=== PATIENT | male | born 1975 | race African-American/Black ===

== ENCOUNTER 2017-05-22 09:27 | Emergency (ER) | payer MEDICAID ==
[~2017-05-22] VITALS: Ht 177.8 cm; Wt 84.0 kg
[~2017-05-22 09:27] MED LIST: LISI10TA5 PO; OMEP20CA10 PO; RISP2 PO
[2017-05-22] MEDS ORDERED: MORPHINE SULFATE 4 MG/ML CPJ (NOT FOR IM USE) IV STA (09:34)
[2017-05-22] MEDS ORDERED: MORPHINE SULFATE 10 MG/ML CPJ IV NR (10:00)
[2017-05-22 10:01] LABS: EOSINOPHILS % 1.1 % (0.0-5.0); HEMATOCRIT. 38.3 % (42.0-52.0); HEMOGLOBIN. 13.1 g/dL (14.0-18.0); LYMPHOCYTES % 27.7 % (20.0-50.0); MEAN CORPUSCULAR HEMOGLOBIN 30.9 pg (28.0-32.0); MEAN CORPUSCULAR VOLUME 90.4 fL (80.0-94.0); MEAN PLATELET VOLUME 7.7 fl (7.4-10.4); MONOCYTES % 6.9 % (2.0-8.0); NEUTROPHILS % 63.3 % (40.0-76.0); PLATELET 234 x1000/uL (130-400); RED BLOOD CELL COUNT 4.23 mill/uL (4.7-6.1); RED CELL DISTRIBUTION WIDTH 13.3 % (11.6-14.6)
[2017-05-22 10:08] LABS: INR 1.1; PROTHROMBIN TIME 11.6 sec (9.4-11.6)
[2017-05-22 10:12] LABS: CARBON DIOXIDE 28 mEq/L (21-32); CHLORIDE 103 mEq/L (98-107)
[2017-05-22 10:15] LABS: TROPONIN I < 0.02 ng/mL (0.00-0.04)
[2017-05-22 12:51] LABS: *AMPHETAMINES SCREEN URINE PRESUMTIVE POSITIVE (NEGATIVE); *BARBITURATES SCREEN URINE NEGATIVE (NEGATIVE); *BENZODIAZEPINES SCREEN URINE NEGATIVE (NEGATIVE); *COCAINE SCREEN URINE NEGATIVE (NEGATIVE); CANNABINOID URINE SCREEN NEGATIVE (NEGATIVE); METHADONE URINE SCREEN NEGATIVE (NEGATIVE); OPIATES URINE SCREEN NEGATIVE (NEGATIVE); PHENCYCLIDINE URINE SCREEN PRESUMTIVE POSITIVE (NEGATIVE)
[2017-05-22 23:24] VITALS: BP 115/79
== END 2017-05-22 23:42 ==
LOC: ER 09:39
DX: S51.811A Laceration without foreign body of right forearm, initial encounter (principal); R45.851 Suicidal ideations; R07.9 Chest pain, unspecified; I10 Essential (primary) hypertension; F12.10 Cannabis abuse, uncomplicated; F16.10 Hallucinogen abuse, uncomplicated; F15.10 Other stimulant abuse, uncomplicated; X78.8XXA Intentional self-harm by other sharp object, initial encounter; Y93.89 Activity, other specified; Y92.89 Other specified places as the place of occurrence of the external cause; Y99.8 Other external cause status
CPT/HCPCS: 12002; 36415; 71010; 80053; 80305; 83880; 84484; 85025; 85610; 93005; 96374; 99285; G0482; J2270; Z7610

== ENCOUNTER 2017-06-15 07:47 | Inpatient (IN) | payer MEDICAID ==
[~2017-06-15] VITALS: Ht 177.8 cm; Wt 94.3 kg
[2017-06-15] MEDS ORDERED: NITROGLYCERIN 0.4MG TABLET SL SL PRN (08:15)
[2017-06-15] MEDS ORDERED: ONDANSETRON HCL 4MG/2ML VIAL IV STA (09:04)
[2017-06-15] MEDS ORDERED: PANTOPRAZOLE SODIUM 40 MG/VIAL IV STA (09:04)
[2017-06-15] MEDS ORDERED: SODIUM CHLORIDE 0.9% 1,000 ML IV ONE (09:04)
[2017-06-15] MEDS ORDERED: MORPHINE SULFATE 4 MG/ML CPJ (NOT FOR IM USE) IV STA (09:04)
[2017-06-15 09:06] LABS: BASOPHILS % 0.6 % (0.0-2.0); EOSINOPHILS % 0.4 % (0.0-5.0); HEMATOCRIT. 40.7 % (42.0-52.0); HEMOGLOBIN. 13.7 g/dL (14.0-18.0); LYMPHOCYTES % 31.2 % (20.0-50.0); MEAN CORPUSCULAR HEMOGLOBIN 30.5 pg (28.0-32.0); MEAN CORPUSCULAR VOLUME 90.7 fL (80.0-94.0); MEAN PLATELET VOLUME 8.4 fl (7.4-10.4); MONOCYTES % 8.5 % (2.0-8.0); NEUTROPHILS % 59.3 % (40.0-76.0); PLATELET 250 x1000/uL (130-400); RED BLOOD CELL COUNT 4.49 mill/uL (4.7-6.1); RED CELL DISTRIBUTION WIDTH 13.4 % (11.6-14.6)
[2017-06-15 09:24] LABS: CARBON DIOXIDE 27 mEq/L (21-32); CHLORIDE 101 mEq/L (98-107); TROPONIN I < 0.02 ng/mL (0.00-0.04)
[2017-06-15 09:25] LABS: INR 1.1; PARTIAL THROMBOPLASTIN TIME 27.1 sec (23.4-31.0); PROTHROMBIN TIME 11.4 sec (9.4-11.6)
[2017-06-15 09:40] LABS: ETHANOL BLOOD < 10 mg/dL
[2017-06-15] MEDS ORDERED: MORPHINE SULFATE 10 MG/ML CPJ IV ONE (09:45)
[2017-06-15 09:48] LABS: INR 1.1; PARTIAL THROMBOPLASTIN TIME 27.7 sec (23.4-31.0); PROTHROMBIN TIME 11.6 sec (9.4-11.6)
[2017-06-15] MEDS ORDERED: POTASSIUM CHLORIDE 20MEQ TABLET SR PO ONE (10:45)
[2017-06-15] MEDS ORDERED: ASPIRIN 81MG TABLET PO ONE (10:45)
[2017-06-15 14:20] VITALS: BP 150/96
[2017-06-15] MEDS: SODIUM CHLORIDE 0.9% 1,000 ML IV SCH (18:03)
[2017-06-15] MEDS ORDERED: OLAN10TA3 PO (18:34)
[2017-06-15] MEDS ORDERED: IPRATROPIUM/ALBUTEROL 0.5-3(2.5)MG/3ML NEB INH PRN (19:45)
[2017-06-15] MEDS ORDERED: CLONIDINE 0.1MG TABLET PO PRN (19:45)
[2017-06-15] MEDS ORDERED: MAGNESIUM/ALUMINUM HYDROXIDE/SIMETHICONE 30ML UDC PO PRN (19:45)
[2017-06-15] MEDS ORDERED: ONDANSETRON HCL 4MG/2ML VIAL IV PRN (19:45)
[2017-06-15] MEDS ORDERED: ACETAMINOPHEN 325MG TABLET PO PRN (19:45)
[2017-06-15 20:00] VITALS: BP 124/79
[2017-06-15] MEDS: ENOXAPARIN 30MG/0.3ML SYR SUBCUT SCH (21:00)
[2017-06-15] MEDS: AMLODIPINE 2.5MG TABLET PO SCH (22:04)
[2017-06-15] MEDS: MULTIVITAMINS,THER W-MINERALS TABLET PO SCH (22:04)
[2017-06-15] MEDS: CHLORDIAZEPOXIDE 25MG CAPSULE PO SCH (22:04)
[2017-06-15] MEDS: FOLIC ACID 1MG TABLET PO SCH (22:04)
[2017-06-15] MEDS: LISINOPRIL 20MG TABLET PO SCH (22:04)
[2017-06-15] MEDS: THIAMINE HCL 100MG TABLET PO SCH (22:05)
[2017-06-16] VITALS: BP 116/56
[2017-06-16] MEDS: SODIUM CHLORIDE 0.9% 1,000 ML IV SCH (02:58)
[2017-06-16 04:00] VITALS: BP 128/66
[2017-06-16 06:16] LABS: BASOPHILS % 0.6 % (0.0-2.0); EOSINOPHILS % 3.4 % (0.0-5.0); HEMATOCRIT. 40.1 % (42.0-52.0); HEMOGLOBIN. 13.1 g/dL (14.0-18.0); LYMPHOCYTES % 38.1 % (20.0-50.0); MEAN CORPUSCULAR HEMOGLOBIN 29.9 pg (28.0-32.0); MEAN CORPUSCULAR VOLUME 91.7 fL (80.0-94.0); MEAN PLATELET VOLUME 8.6 fl (7.4-10.4); MONOCYTES % 11.7 % (2.0-8.0); NEUTROPHILS % 46.2 % (40.0-76.0); PLATELET 220 x1000/uL (130-400); RED BLOOD CELL COUNT 4.38 mill/uL (4.7-6.1); RED CELL DISTRIBUTION WIDTH 13.6 % (11.6-14.6)
[2017-06-16] MEDS ORDERED: OMEPRAZOLE 20MG CAPSULE EXTENDED RELEASE PO SCH (06:45)
[2017-06-16 08:00] VITALS: BP 105/68
[2017-06-16] MEDS: AMLODIPINE 2.5MG TABLET PO SCH (08:26)
[2017-06-16] MEDS: LISINOPRIL 20MG TABLET PO SCH (08:27)
[2017-06-16] MEDS: THIAMINE HCL 100MG TABLET PO SCH (08:35)
[2017-06-16] MEDS: MULTIVITAMINS,THER W-MINERALS TABLET PO SCH (08:35)
[2017-06-16] MEDS: CHLORDIAZEPOXIDE 25MG CAPSULE PO SCH (08:36)
[2017-06-16] MEDS: FOLIC ACID 1MG TABLET PO SCH (08:36)
[2017-06-16] MEDS: ENOXAPARIN 30MG/0.3ML SYR SUBCUT SCH (08:36)
[2017-06-16 08:37] LABS: CARBON DIOXIDE 30 mEq/L (21-32); CHLORIDE 104 mEq/L (98-107)
[2017-06-16] MEDS ORDERED: OLANZAPINE 10MG TABLET PO SCH (09:00)
[2017-06-16] MEDS ORDERED: DOCUSATE SODIUM 100MG CAPSULE PO SCH (09:00)
[2017-06-16 12:00] VITALS: BP 95/56
[2017-06-16 12:42] VITALS: BP 95/56
== END 2017-06-16 13:00 | disposition home or self-care (01) | DRG 203 ==
LOC: ER 07:48 → 5WST 11:03 → EDBEDREQ 11:06 → ENRESERV 13:01
PROVIDERS: ADMIT Family Medicine Adult Medicine; ATTEND Family Medicine Adult Medicine
DX: M94.0 Chondrocostal junction syndrome [Tietze] (principal); F20.9 Schizophrenia, unspecified; I10 Essential (primary) hypertension; E87.6 Hypokalemia; F19.10 Other psychoactive substance abuse, uncomplicated; F15.10 Other stimulant abuse, uncomplicated; F17.210 Nicotine dependence, cigarettes, uncomplicated; Z90.49 Acquired absence of other specified parts of digestive tract; Z79.899 Other long term (current) drug therapy; Z91.14 Patient's other noncompliance with medication regimen; Z71.51 Drug abuse counseling and surveillance of drug abuser
CPT/HCPCS: 36415; 71010; 74176; 80053; 82962; 83690; 84484; 85025; 85610; 85730; 93005; 93306; 96361; 96374; 96375; 99285; C9113; G0482; J1650; J2270; J2405; J7030; J7042

== ENCOUNTER 2017-12-21 16:15 | Emergency (ER) | payer MEDICAID ==
[~2017-12-21] VITALS: Ht 177.8 cm; Wt 89.0 kg
[~2017-12-21 16:15] MED LIST changes: +OLAN10TA3 PO; -RISP2 PO
[2017-12-21] MEDS ORDERED: MAGNESIUM HYDROXIDE 400MG/5ML 30ML UDC PO ONE (17:15)
[2017-12-21 17:51] LABS: EOSINOPHILS % 0.8 % (0.0-5.0); HEMATOCRIT. 40.8 % (42.0-52.0); HEMOGLOBIN. 13.7 g/dL (14.0-18.0); LYMPHOCYTES % 26.4 % (20.0-50.0); MEAN CORPUSCULAR HEMOGLOBIN 30.8 pg (28.0-32.0); MEAN CORPUSCULAR VOLUME 91.6 fL (80.0-94.0); MEAN PLATELET VOLUME 7.7 fl (7.4-10.4); MONOCYTES % 7.6 % (2.0-8.0); NEUTROPHILS % 64.2 % (40.0-76.0); PLATELET 301 x1000/uL (130-400); RED BLOOD CELL COUNT 4.46 mill/uL (4.7-6.1); RED CELL DISTRIBUTION WIDTH 13.4 % (11.6-14.6)
[2017-12-21 17:56] LABS: CHLORIDE 105 mEq/L (98-107); PROTHROMBIN TIME 10.9 sec (9.4-11.6)
[2017-12-21 19:09] VITALS: BP 136/74
== END 2017-12-21 19:10 | disposition home or self-care (01) ==
LOC: ER 16:58
DX: K59.09 Other constipation (principal); I10 Essential (primary) hypertension; F17.210 Nicotine dependence, cigarettes, uncomplicated; Z71.6 Tobacco abuse counseling; F12.90 Cannabis use, unspecified, uncomplicated
CPT/HCPCS: 36415; 80053; 83690; 85025; 85610; 99284; 99406

== ENCOUNTER 2018-11-13 17:12 | Emergency (ER) | payer MEDICAID ==
[~2018-11-13] VITALS: Ht 177.8 cm; Wt 90.0 kg
[2018-11-13] MEDS ORDERED: MAGNESIUM CITRATE 300ML SOLUTION PO ONE (19:00)
[2018-11-13] MEDS ORDERED: ONDANSETRON HCL 4MG/2ML INJ IV ONE (19:00)
[2018-11-13] MEDS ORDERED: CLONIDINE 0.1MG TABLET PO ONE (19:00)
[2018-11-13] MEDS ORDERED: RISPERIDONE 1MG TABLET PO SCH (19:30)
[2018-11-13] MEDS ORDERED: DIPHENHYDRAMINE 50MG/ML VIAL IM ONE (19:45)
[2018-11-13] MEDS ORDERED: HALOPERIDOL LACTATE 5MG/ML VIAL IM ONE (19:45)
[2018-11-13 20:55] LABS: BASOPHILS % 0.5 % (0.0-2.0); EOSINOPHILS % 0.7 % (0.0-5.0); HEMOGLOBIN. 13.3 g/dL (14.0-18.0); MEAN CORPUSCULAR HEMOGLOBIN 30.5 pg (28.0-32.0); MEAN CORPUSCULAR VOLUME 89.3 fL (80.0-94.0); MEAN PLATELET VOLUME 7.7 fl (7.4-10.4); MONOCYTES % 8.5 % (2.0-8.0); NEUTROPHILS % 58.3 % (40.0-76.0); PLATELET 265 x1000/uL (130-400); RED BLOOD CELL COUNT 4.36 mill/uL (4.7-6.1); RED CELL DISTRIBUTION WIDTH 14.7 % (11.6-14.6)
[2018-11-13 20:58] LABS: CHLORIDE 105 mEq/L (98-107)
[2018-11-13 21:03] LABS: ETHANOL BLOOD 13 mg/dL
[2018-11-14 09:40] VITALS: BP 105/65
== END 2018-11-14 09:43 | disposition home or self-care (01) ==
LOC: ER 17:12
DX: S61.511A Laceration without foreign body of right wrist, initial encounter (principal); X78.9XXA Intentional self-harm by unspecified sharp object, initial encounter; Y93.89 Activity, other specified; Y92.89 Other specified places as the place of occurrence of the external cause; R45.851 Suicidal ideations; R45.1 Restlessness and agitation; F33.3 Major depressive disorder, recurrent, severe with psychotic symptoms; K59.00 Constipation, unspecified; I10 Essential (primary) hypertension; F12.90 Cannabis use, unspecified, uncomplicated
CPT/HCPCS: 36415; 80053; 80320; 85025; 96374; 99284; J1630; J2405; J1200; G0480

== ENCOUNTER 2024-11-23 09:31 | Emergency (ER) | payer MEDICAID, OTHER ==
[~2024-11-23] VITALS: Ht 177.8 cm; Wt 97.5 kg
[~2024-11-23 09:31] MED LIST changes: +ASPI-1497 PO; +ATOR10TA69 PO; +CYCL10TA21 PO; +LISI10TA26 PO; -LISI10TA5 PO; -OMEP20CA10 PO; +OMEP20CA14 PO
[2024-11-23 09:39] VITALS: BP 120/88; TEMP 36.6; O2SAT 100
[2024-11-23 09:41] VITALS: PULSE 91; RESP 18; O2SAT 99
[2024-11-23 10:30] LABS: BASOPHILS % 0.5 % (0.0-2.0); HEMATOCRIT. 38.1 % (42.0-52.0); HEMOGLOBIN. 12.7 g/dL (14.0-18.0); LYMPHOCYTES % 28.6 % (20.0-50.0); MEAN CORPUSCULAR HGB CONC 33.4 g/dL (31.0-37.0); MEAN CORPUSCULAR VOLUME 89.9 fL (80.0-94.0); MEAN PLATELET VOLUME 7.7 fl (7.4-10.4); MONOCYTES % 8.5 % (2.0-8.0); NEUTROPHILS % 59.4 % (40.0-76.0); PLATELET 266 x1000/uL (130-400); RED BLOOD CELL COUNT 4.24 mill/uL (4.7-6.1); RED CELL DISTRIBUTION WIDTH 13.4 % (11.6-14.6); WHITE BLOOD COUNT 5.1 x1000/uL (4.5-11.0)
[2024-11-23 10:40] LABS: CHLORIDE 102 mEq/L (98-107); SODIUM 136 mEq/L (136-145)
[2024-11-23 10:41] LABS: CALCIUM 8.9 mg/dL (8.7-10.4); CARBON DIOXIDE 29 mEq/L (21-32)
[2024-11-23 10:45] LABS: INR 1.1; PROTHROMBIN TIME 11.3 sec (9.6-11.0)
[2024-11-23 10:46] LABS: CREATININE 1.2 mg/dL (0.6-1.3); GLUCOSE 87 mg/dL (70-105); UREA NITROGEN BLOOD 9 mg/dL (9-23)
[2024-11-23 11:31] LABS: TROPONIN I HIGH SENSITIVITY < 4 ng/L (3.0-53)
[2024-11-23] MEDS ORDERED: LOPE2CAP MT (12:03)
== END 2024-11-23 12:20 | disposition home or self-care (01) ==
LOC: ER 09:31
DX: R19.7 Diarrhea, unspecified (principal); R07.89 Other chest pain; F12.10 Cannabis abuse, uncomplicated; I10 Essential (primary) hypertension; E11.9 Type 2 diabetes mellitus without complications; E78.00 Pure hypercholesterolemia, unspecified; Z79.82 Long term (current) use of aspirin; Z90.49 Acquired absence of other specified parts of digestive tract; Z79.899 Other long term (current) drug therapy
CPT/HCPCS: 36415; 80048; 84484; 85025; 93005; 99284